=== PATIENT | female | born 1990 | race Caucasian/White ===

== ENCOUNTER 2016-03-25 11:21 | Emergency (ER) | payer SELFPAY ==
[~2016-03-25] VITALS: Ht 162.6 cm; Wt 100.0 kg
[~2016-03-25 11:21] MED LIST: CIPR500T4 PO; IBUP-232 PO
[2016-03-25 11:23] VITALS: BP 138/93; PULSE 90; RESP 14; TEMP 98.5; O2SAT 99
--- NOTE | 2016-03-25 11:49 | PD ---
HPI Chief Complaint: ENT Complaint Time Seen by Provider: 11:49 Travel History International Travel<30 days: No Contact w/Intl Traveler<30days: No Traveled to known affect area: No History of Present Illness HPI 25-year-old female with PMH of migraine headache presents to the ED for evaluation of dull headache over the entire head. She states this is similar to previous headaches. She endorses mild photophobia. She denies tearing, vision changes, dizziness, nausea, vomiting. She states that over the course of the day yesterday the headache localized to the right ear. She endorses decreased hearing and sore throat. She denies sinus congestion, rhinorrhea, difficulties swallowing her own secretions. Denies chronic health problems. Takes no daily medications. NKDA. PFSH Past Medical History Bipolar Disorder: Yes Anxiety: Yes Depression: Yes Diabetes: No Diminished Hearing: No Headaches: Yes Psychiatric: Yes Immunizations Current: Yes Migraines: Yes PNEUMOCCOCAL Vaccine (Year): 2 ?: Unknown : 1 Para: 1 Past Surgical History Other Surgery: No Social History Alcohol Use: No (Pt denies) Tobacco Use: No Substance Use: Yes (Marijuana) Allergies-Medications (Allergen,Severity, Reaction): Coded Allergies: Castaneda (Verified Allergy, Severe, 03/25/16) Reported Meds & Prescriptions Reported Meds & Active Scripts Active No Active Prescriptions or Reported Medications Review of Systems Except as stated in HPI: all other systems reviewed are Neg Physical Exam Narrative GENERAL: Well-nourished, well-developed white female in no acute distress. SKIN: Warm and dry. HEAD: Normocephalic. Atraumatic. EYES: No scleral icterus. No injection or drainage. PERRLA. EOMI and painless. ENT: Right tympanic membrane obscured by cerumen impaction. Left tympanic membrane pearly reyes without loss of landmarks. Nasal mucosa is moist. Oropharynx without edema or exudate. Mild posterior oropharyngeal erythema. 1 + tonsil on the right. Uvula midline. We patent. NECK: Supple, trachea midline. No JVD or lymphadenopathy. CARDIOVASCULAR: Regular rate and rhythm without murmurs, gallops, or rubs. No carotid bruits. 2+ DP and radial pulses bilaterally. RESPIRATORY: Breath sounds clear and equal bilaterally. No accessory muscle use. GASTROINTESTINAL: Abdomen soft, non-tender, nondistended. + Bowel sounds MUSCULOSKELETAL: No cyanosis, or edema. The patient is ambulatory and moves extremities spontaneously. NEUROLOGICAL: Awake and alert. Cranial nerves II through XII intact. Motor and sensory grossly within normal limits. Five out of 5 muscle strength in all muscle groups. Normal speech. BACK: Nontender without obvious deformity. No CVA tenderness. Data Data Last Documented VS Vital Signs Date Time Temp Pulse Resp B/P Pulse Ox O2 Delivery O2 Flow Rate FiO2 03/25/16 11:23 98.5 90 14 138/93 99 Room Air Orders Group A Rapid Strep Screen (03/25/16 11:38) Influenzae A/B Antigen (03/25/16 11:38) Iv Access Insert/Monitor (03/25/16 11:55) Sodium Chloride 0.9% Flush (Ns Flush) (03/25/16 12:00) Ketorolac Inj (Toradol Inj) (03/25/16 12:00) Prochlorperazine Inj (Compazine Inj) (03/25/16 12:00) Diphenhydramine Inj (Benadryl Inj) (03/25/16 12:00) Strep Culture (Group A) (03/25/16 12:15) MDM Medical Decision Making Medical Screen Exam Complete: Yes Emergency Medical Condition: Yes Differential Diagnosis Migraine versus otitis externa versus otitis versus dental abscess versus dentalgia versus less likely ICH versus other Narrative Course 25-year-old female with PMH of migraine headache presents to the ED for evaluation of dull headache over the entire head. She states this is similar to previous headaches. She endorses mild photophobia. She denies tearing, vision changes, dizziness, nausea, vomiting. She states that over the course of the day yesterday the headache localized to the right ear. She endorses decreased hearing and sore throat. She denies sinus congestion, rhinorrhea, difficulties swallowing her own secretions. Vitals reviewed. Physical exam reveals nontoxic-appearing white female in no acute distress. No focal neural deficits. No red flag symptoms. The right ear is obscured by cerumen impaction. Patient was administered Toradol, Compazine, Benadryl. Recheck approximately 30 minutes after medication administration reveals improvement of symptoms. Strep and influenza swabs were negative. The right ear was flushed of the cerumen impaction utilizing a 50:50 mix of peroxide and warm water. This revealed a pearly reyes tympanic membrane without loss of landmarks or evidence of rupture. Endorses improvement of her pain and hearing. Patient is instructed to rest, hydrate, avoid known stressors, follow up with the primary care provider this week. We discussed reasons to return to the ED. She indicated understanding of the instructions, is amenable to the plan of care. She is stable and discharged home. Diagnosis Primary Impression: Migraine Qualified Code: G43.909 - Migraine without status migrainosus, not intractable , unspecified migraine type Additional Impression: Impacted cerumen of right ear Referrals: Primary Care Physician Patient Instructions: Cerumen Impaction (ED), General Instructions, Migraine Headache (ED) Additional Instructions: Rest, hydrate. Avoid known stressors. Follow-up with the primary care provider this week. Return to the ED for any urgent or emergent medical condition. Scripts No Active Prescriptions or Reported Meds Disposition: 01 DISCHARGE HOME Condition: Stable Linda Springer Mar 25, 2016 11:49
[2016-03-25] MEDS ORDERED: PROCHLORPERAZINE INJ 10 MG/2 ML VIAL IVP ONE (12:00)
[2016-03-25] MEDS ORDERED: SODIUM CHLORIDE 0.9% FLUSH 5 ML FLUSH IVF PRN (12:00)
[2016-03-25] MEDS ORDERED: KETOROLAC TROMETHAMINE 30 MG/ML (IVP) VIAL IVP ONE (12:00)
[2016-03-25] MEDS ORDERED: diphenhydrAMINE HCL 50 MG/ML VIAL IVP ONE (12:00)
== END 2016-03-25 13:13 | disposition home or self-care (01) ==
LOC: NEPB 11:21
DX: G43.909 Migraine, unspecified, not intractable, without status migrainosus (principal); H61.21 Impacted cerumen, right ear; H53.149 Visual discomfort, unspecified; R07.0 Pain in throat; Z86.59 Personal history of other mental and behavioral disorders; Z86.69 Personal history of other diseases of the nervous system and sense organs
CPT/HCPCS: 87081; 87804; 87880; 96374; 96375; 99283; J0780; J1200; J1885

== ENCOUNTER 2017-06-16 14:30 | Emergency (ER) | payer MEDICAID, OTHER ==
[~2017-06-16] VITALS: Ht 162.6 cm; Wt 95.0 kg
[2017-06-16 14:47] VITALS: BP 112/81; PULSE 107; RESP 16; TEMP 98.4; O2SAT 100
--- NOTE | 2017-06-16 19:12 | PD ---
HPI Chief Complaint: Abdominal Pain Time Seen by Provider: 18:40 Travel History International Travel<30 days: No Contact w/Intl Traveler<30days: No Traveled to known affect area: No History of Present Illness HPI The patient is a 26-year-old , last menstrual cycle March 24, 2017, who presents to emergency department for lower abdominal pain and cramping. The patient states she has an 8-year-old at home, vaginal delivery, and is currently 12 weeks per her estimation. The patient had an ultrasound performed at 8 weeks gestation by her hardboard press operator, Dr. Ulrich, revealing an IUP. However, the patient slipped and fell in the shower last night, striking her head and mid back. She denies any loss of consciousness or significant hematoma to the head. She denies any bleeding from any wounds. She complains of mild headache and some mid back pain. However, she is more concerned about lower abdominal pain and cramping. She does note a small amount of spotting without any discharge, dysuria, frequency, or urgency. Symptoms are mild. Exacerbated after tripping and falling in the shower. PFSH Past Medical History Bipolar Disorder: Yes Anxiety: Yes Depression: Yes Diabetes: No Diminished Hearing: No Headaches: Yes Psychiatric: Yes Immunizations Current: Yes Migraines: Yes Tetanus Vaccination: < 5 Years Influenza Vaccination: No PNEUMOCCOCAL Vaccine (Year): 2 ?: LMP: 03/24/17 : 1 Para: 1 Past Surgical History Surgical History: No Previous Surgery Other Surgery: No Social History Alcohol Use: No (Pt denies) Tobacco Use: No Substance Use: Yes (Marijuana) Allergies-Medications (Allergen,Severity, Reaction): Coded Allergies: reyes (Unverified Allergy, Severe, 10/27/16) Reported Meds & Prescriptions Reported Meds & Active Scripts Active No Active Prescriptions or Reported Medications Review of Systems Except as stated in HPI: all other systems reviewed are Neg HENT: Positive: Headaches, No: Neck Pain Cardiovascular: No: Chest Pain or Discomfort Respiratory: No: Shortness of Breath Gastrointestinal: Positive: Abdominal Pain, No: Nausea, Vomiting Genitourinary: Positive: Pelvic Pain, Vaginal Bleeding (Spotting) Musculoskeletal: Positive: Pain (Mid back pain), No: Myalgias Neurologic: No: Dizziness, Syncope Physical Exam Narrative GENERAL: Awake, alert, pleasant 26-year-old female who appears her stated age and is in no acute respiratory distress. SKIN: Focused skin assessment warm/dry. HEAD: Atraumatic. Normocephalic. No visible cephalohematoma. No visible abrasion or laceration. EYES: Pupils equal and round. No scleral icterus. No injection or drainage. ENT: No nasal bleeding or discharge. Mucous membranes pink and moist. NECK: Trachea midline. No JVD. No tenderness of the cervical vertebrae. Mild tenderness of the left paravertebral muscles. CARDIOVASCULAR: Regular rate and rhythm. No murmur appreciated. RESPIRATORY: No accessory muscle use. Clear to auscultation. Breath sounds equal bilaterally. GASTROINTESTINAL: Abdomen soft, no guarding or rigidity. non-tender, nondistended. Pelvic: Deferred by patient. Back: No tenderness over the thoracic or lumbar vertebrae. MUSCULOSKELETAL: No obvious deformities. No clubbing. No cyanosis. No edema. NEUROLOGICAL: Awake and alert. No obvious cranial nerve deficits. Motor grossly within normal limits. Normal speech. PSYCHIATRIC: Appropriate mood and affect; insight and judgment normal. Data Data Last Documented VS Vital Signs Date Time Temp Pulse Resp B/P (MAP) Pulse Ox O2 Delivery O2 Flow Rate FiO2 06/16/17 14:47 98.4 107 16 112/81 (91) 100 Orders Orders Complete Rh (06/16/17 18:53) Ed Poc Ultrasound (06/16/17 18:53) [facility] Medical Decision Making Medical Screen Exam Complete: Yes Emergency Medical Condition: Yes Medical Record Reviewed: Yes Interpretation(s) Blood type is A positive Differential Diagnosis Differential diagnosis includes threatened AB, incomplete AB, normal , uterine rupture, UTI. Narrative Course A bedside ultrasound was performed with a female heat treater in the room. Bedside ultrasound reveals positive heart tones and positive movement. The patient was shown the ultrasound as it was performed real time. I reviewed the EMR, no old Rh status visible, therefore, Rh status was sent to lab. The patient deferred pelvic examination. The patient's blood type is a positive, therefore, no wrote indication for RhoGam. The patient is advised to follow-up with Dr. Ulrich. Return if symptoms worsen or progress. Procedures Procedure Narrative A bedside ultrasound was performed using a curvilinear probe revealing an IUP, positive movement, and positive heart tones. The patient was shown the ultrasound as it was performed real time. The patient tolerated the procedure without difficulty and there was no obvious complications. Diagnosis Primary Impression: Vaginal bleeding in Patient Instructions: General Instructions Additional Instructions: Follow-up with your hardboard press operator. Return if symptoms worsen or progress. Tylenol as needed for pain. Drink plenty of fluids. Med/Other Pt SpecificInfo: No Change to Meds Scripts No Active Prescriptions or Reported Meds Disposition: 01 DISCHARGE HOME Condition: Stable Bijan Fletcher MD Jun 16, 2017 19:12
== END 2017-06-16 20:18 | disposition home or self-care (01) ==
LOC: NEPD 14:30
DX: O20.9 Hemorrhage in early pregnancy, unspecified (principal); Z3A.12 12 weeks gestation of pregnancy
CPT/HCPCS: 86901; 99284

== ENCOUNTER 2017-07-20 12:26 | Emergency (ER) | payer OTHER, MEDICAID | END 2017-07-20 13:51 | disposition home or self-care (01) | LOC: NEPD 12:26 | DX: O9A.212 Injury, poisoning and certain other consequences of external causes complicating pregnancy, second trimester (principal); O26.892 Other specified pregnancy related conditions, second trimester; R10.9 Unspecified abdominal pain; M54.2 Cervicalgia; V89.2XXA Person injured in unspecified motor-vehicle accident, traffic, initial encounter; Z3A.18 18 weeks gestation of pregnancy | CPT/HCPCS: 99282 ==